=== PATIENT | male | born 1970 | race Caucasian/White ===

== ENCOUNTER 2017-04-06 15:31 | Emergency (ER) | payer OTHER ==
--- NOTE | ~2017-04-06 | CT16 ---
[facility] A Service of [facility] RADIOLOGY TEXT RESULTS PATIENT: SHELTON BENNETT LOCATION: SED : 70 UNIT #: [id number] AGE: [address]: Jayson Saab MD SEX: M ORDER DR: [id number] [address] [address] [id number] E MR#: [id number] Acc #: [id number] NAME: SHELTON BENNETT. : 1970 SEX: M STUDY DATE/TIME: 04/06/2017 17:13 UNIT: SED ROOM: STUDY DESCRIPTION: CT Angio Chest for PE Attending Physician: Jayson Saab M.D. Ordering Physician: Jayson Saab M.D. Primary Care Physician: Prem Garcias D.M.D. MEDICAL IMAGING REPORT This report is preliminary unless electronic signature is present. EXAMINATION CTA chest, PE protocol with IV contrast. DATE 04/06/2017 HISTORY Chest pain and shortness of breath and cough since this morning. History of mitral valve prolapse, heart murmur. COMPARISON AP portable chest 04/06/2017 at 06:11. No prior CT chest at this institution for comparison. PROCEDURE 2 mm axial images through the chest after intravenous contrast administration. 3-D coronal MIP reformatted images were obtained. This CT exam was performed with one or more of the following radiation dose reduction techniques: automatic exposure control, adjustment of mA and/or kV according to patient size, and iterative reconstruction. FINDINGS Centrilobular and paracentral emphysematous changes are present. No acute airspace disease is seen. Clustered tree-in-bud nodular densities are present within the central right lower lobe (series 5 image 138), favored to represent small airways infectious - inflammatory change. No dense lung consolidations are identified. Minimal linear subsegmental atelectasis in the posterior bilateral lower lobes. Scarring in the lung apices. The quality of the study is good. No pulmonary embolism is seen. No thoracic aortic aneurysm or dissection. No pathologic adenopathy. No pericardial effusion. No pleural effusion. No pneumothorax. [facility] A Service of [facility] RADIOLOGY TEXT RESULTS PATIENT: SHELTON BENNETT LOCATION: [facility] : [birth year] UNIT #: [id number] AGE: [address]: Jayson Saab MD SEX: M ORDER DR: Included portions of the upper abdominal organs appear unremarkable. No acute osseous abnormalities. IMPRESSION 1. No pulmonary embolism. No thoracic aortic aneurysm or aortic dissection. 2. Small focal clustered tree-in-bud nodular densities in the central right lower lobe favored to represent small airways infectious - inflammatory change. 3. Mild centrilobular and paracentral emphysema. Dictated by... Lalitha Obando M.D. THIS IS AN ELECTRONICALLY VERIFIED REPORT Lalitha Obando M.D. at 04/11/2017 8:52 AM IGNACIO/nimo TD: 04/06/2017 23:45 JOB #: [id number] MEDICAL IMAGING REPORT Page 1 of 1
--- NOTE | ~2017-04-06 | CR72 ---
[facility] A Service [facility] RADIOLOGY TEXT RESULTS PATIENT: SHELTON BENNETT LOCATION: SED : [birth year] UNIT #: [id number] AGE: [address]: Jayson Saab MD SEX: M ORDER DR: [id number] [address] [id number] E MR#: [id number] Acc #: [id number] NAME: SHELTON BENNETT. : 1970 SEX: M STUDY DATE/TIME: 04/06/2017 16:11 UNIT: SED ROOM: STUDY DESCRIPTION: CR Chest Single View Portable Attending Physician: Jayson Saab M.D. Ordering Physician: Jayson Saab M.D. Primary Care Physician: Prem Garcias D.M.D. MEDICAL IMAGING REPORT This report is preliminary unless electronic signature is present. EXAM AP portable chest DATE 04/06/2017 16:11 HISTORY 46-year-old male with chest pain and shortness of breath since yesterday. 32 year smoking history. COMPARISON AP portable chest 05/11/2016 FINDINGS Emphysematous changes are present. No acute air space disease is identified. No pleural effusion or pneumothorax is evident. Heart size is normal. No acute osseous abnormality. IMPRESSION 1. Emphysematous changes. No acute chest findings. Dictated by... Lalitha Obando M.D. THIS IS AN ELECTRONICALLY VERIFIED REPORT Lalitha Obando M.D. at 04/07/2017 2:02 PM L[place]/rnr TD: 04/06/2017 22:10 [facility] A Service [facility] RADIOLOGY TEXT RESULTS PATIENT: SHELTON BENNETT LOCATION: SED : [birth year] UNIT #: [id number] AGE: [address]: Jayson Saab MD SEX: M ORDER DR: REÉNE #: [id number] MEDICAL IMAGING REPORT Page 1 of 1
--- NOTE | ~2017-04-06 | EKG ---
PATIENT: SHELTON BENNETT UNIT #: [id number] Ventricular Rate: 82 BPM Atrial Rate: 85 BPM P-R Interval: 152 ms QRS Duration: 90 ms Q-T Interval: 362 ms QTC Calculation(Bezet): 422 ms P [place]: 71 degrees Calculated R [place]: 88 degrees Calculated T [place]: 63 degrees Diagnosis Line: Normal sinus rhythm Diagnosis Line: Normal ECG Diagnosis Line: When compared with ECG of 11-MAY-2016 09:20, Diagnosis Line: No significant change was found Diagnosis Line: Confirmed by ELIE THOMAS MD ([id number]) on Diagnosis Line: 04/10/2017 8:22:09 AM INTERPRETING MD: WILLIAM MATHEW
[~2017-04-06 15:31] MED LIST: KEFLEX PO; MOBIC PO; MULTIPLE VITAMI1 T13 PO; PERCOCET5/325 PO; ZITHROMAX1 G/PKT PO
[2017-04-06 16:28] LABS: BASOPHIL# 0.1 X10e3 (0-0.3); BASOPHIL% 0.6 % (0-2.5); EOSINOPHIL# 0.2 X10e3 (0-0.7); EOSINOPHIL% 2.3 % (0.0-7.0); HEMATOCRIT 43.1 % (38.0-50.0); HEMOGLOBIN 14.9 gm/dL (13.0-16.0); LYMPHOCYTE# 1.5 X10e3 (1.0-3.5); LYMPHOCYTE% 18.7 % (17.0-45.0); MEAN CELL VOLUME 86.4 FL (83-96); MEAN CORPUSCULAR HEMOGLOBIN 29.9 PG (28-34); MEAN CORPUSCULAR HGB CONC 34.6 g/dL (30-36); MEAN PLATELET VOLUME 10.4 FL (6.5-11.5); MONOCYTE# 0.7 X10e3 (0-1.0); MONOCYTE% 9.4 % (3.0-12.0); NEUTROPHIL# 5.4 X10e3 (1.5-7.1); PLATELET COUNT 196 X10e3 (140-420); RED BLOOD COUNT 4.99 X10e (3.90-5.60); RED CELL DISTRIBUTION WIDTH 12.9 % (11.0-15.5); WHITE BLOOD COUNT 7.9 X10e3 (4.0-10.5)
[2017-04-06 16:39] LABS: POC - MYOGLOBIN 81.1 ng/mL (0.0-169.0)
[2017-04-06 16:40] LABS: POC - TROPONIN <0.05 ng/mL (<=0.05)
[2017-04-06 16:40] LABS: PROTHROMBIN TIME (PATIENT) 11.7 SECONDS (9.5-12.4)
[2017-04-06 16:45] LABS: DIFF IND NO
[2017-04-06 16:47] LABS: ALBUMIN SERUM 4.5 g/dL (3.5-5.0); BILIRUBIN, DIRECT 0.1 mg/dL (0.0-0.2); BILIRUBIN,INDIRECT 0.5 mg/dL (0.0-0.9); BILIRUBIN,TOTAL 0.6 mg/dL (0.2-2.0); BUN/CREATININE RATIO 16.92; CALCIUM SERUM 9.4 mg/dL (8.4-10.2); CREATININE SERUM 1.3 mg/dL (0.6-1.4); GLOM FILT RATE Estimated 65.5 mL/min (>60); PARTIAL THROMBOPLASTIN TIME 27.9 SECONDS (25.6-38.1); POTASSIUM 3.4 mmol/L (3.5-5.1); PROTEIN TOTAL SERUM 7.8 g/dL (6.0-8.3)
== END 2017-04-06 18:00 | disposition home or self-care (01) ==
LOC: SED 15:31
PROVIDERS: Emergency Medicine
DX: R09.1 Pleurisy (principal); F17.200 Nicotine dependence, unspecified, uncomplicated
CPT/HCPCS: 36415; 71010; 71275; 80048; 80076; 82553; 83874; 84484; 85025; 85610; 85730; 93005; 96361; 96374; 96375; 99285; J1885; J2930; Q9967